=== PATIENT | male | born 1980 | race Caucasian/White ===

== ENCOUNTER 2020-02-12 05:57 | Inpatient (IN) | payer OTHER ==
[2020-02-12 06:36] VITALS: BMI 29.7
[2020-02-12] MEDS ORDERED: LORazepam 2 MG/ML SDV VIAL ONE ×4 (07:32→13:06)
[2020-02-12] MEDS ORDERED: ONDANSETRON 4 MG/2 ML VIAL IVPUSH ONE (07:36)
[2020-02-12 08:24] LABS: BASO % 0.8 % (0-2.0); EOS % 3.5 % (0-4.5); HEMATOCRIT 40.5 % (35.4-49); HEMOGLOBIN 13.2 GM/dL (11.7-16.9); LYMPH % 38.7 % (8-40); MCH 26.5 pg (25.7-33.7); MCHC 32.6 g/dl (32.0-35.9); MEAN CELL VOLUME 81.4 fl (80-96); MEAN PLT VOLUME 7.9 fl (7.5-11.1); MONO % 7.5 % (3.8-10.2); NEUT % 49.5 % (42.8-82.8); PLATELET COUNT 184 K/MM3 (134-434); RBC 4.97 M/mm3 (4.00-5.60); RDW 20.5 % (11.9-15.9); WHITE BLOOD COUNT 7.1 K/mm3 (4.0-10.0)
[2020-02-12] MEDS ORDERED: ONDANSETRON 4 MG/2 ML VIAL ONE (08:31)
[2020-02-12 08:34] LABS: CHLORIDE 104 mmol/L (98-107); POTASSIUM 4.1 mmol/L (3.5-5.1); SODIUM 138 mmol/L (136-145)
[2020-02-12 08:36] LABS: ALBUMIN 3.2 g/dl (3.4-5.0); ANION GAP 4 MMOL/L (8-16); CALCIUM 8.7 mg/dL (8.5-10.1); CO2 31 mmol/L (21-32)
[2020-02-12 08:37] LABS: BLOOD UREA NITROGEN 11.4 mg/dL (7-18); GLUCOSE,RANDOM 85 mg/dL (74-106)
[2020-02-12 08:39] LABS: SGOT/AST 22 U/L (15-37); SGPT/ALT 24 U/L (13-61)
[2020-02-12] MEDS ORDERED: LACTATED RINGERS SOLUTION 1000 ML INFUS.BAG IV ONE (08:39)
[2020-02-12] MEDS ORDERED: levETIRAcetam 500 MG/5 ML INJECTION VIAL IVPB ONE ×2 (08:39→09:27)
[2020-02-12 08:40] LABS: CREATININE 0.9 mg/dL (0.55-1.3)
[2020-02-12 08:41] LABS: BILIRUBIN,TOTAL 0.2 mg/dL (0.2-1); TOT PROT 7.6 g/dl (6.4-8.2)
[2020-02-12 08:42] LABS: ALK PHOS 93 U/L (45-117)
[2020-02-12 09:59] LABS: ANISOCYTOSIS 1+; MACROCYTOSIS 1+; PLATELET ESTIMATE NORMAL
[2020-02-12] MEDS ORDERED: KETAMINE HCL 200 MG/20 ML VIAL IVPUSH ONE (11:15)
[2020-02-12] MEDS ORDERED: KETAMINE HCL 200 MG/20 ML VIAL ONE (11:42)
[2020-02-12] MEDS ORDERED: RAPID SEQUENCE INTUBATION KIT NR ONE (13:04)
[2020-02-12] MEDS ORDERED: FOSPHENYTOIN SODIUM 1,000 MG in SODIUM CHLORIDE 100 ML IVPB ONE (13:11)
[2020-02-12] MEDS ORDERED: FAMOTIDINE 20 MG/50 ML IVPB 20 MG/50 ML MG IVPB ONE ×2 (16:26→18:09)
[2020-02-12] MEDS ORDERED: ALBUTEROL SO4 HFA INHALER IH PRN (16:39)
[2020-02-12] MEDS ORDERED: METHADONE HCL 10 MG TABLET PO ONE ×2 (16:41→18:00)
[2020-02-12] MEDS ORDERED: ONDANSETRON *ODT* 4 MG TABLET SL ONE (16:47)
[2020-02-12] MEDS ORDERED: MAGNESIUM SULF 50% (8.12 MEQ/2 ML-1 GM VIAL) IVPB ONE (17:34)
[2020-02-12] MEDS ORDERED: chlordiazePOXIDE HCL 10 MG CAPSULE PO PRN (17:57)
[2020-02-12] MEDS ORDERED: METHADONE 40 MG, METHADONE 10 MG PO ONE (18:00)
[2020-02-12] MEDS ORDERED: chlordiazePOXIDE HCL 10 MG CAPSULE PO SCH ×2 (18:00→23:00)
[2020-02-12] MEDS ORDERED: METHADONE HCL 10 MG TABLET ONE (18:08)
[2020-02-12] MEDS ORDERED: chlordiazePOXIDE 5 MG CAPSULE ONE (18:08)
[2020-02-12] MEDS ORDERED: ONDANSETRON *ODT* 4 MG TABLET ONE (18:09)
[2020-02-12] MEDS ORDERED: METHADONE HCL 40 MG DISPERSABLE TABLET ONE (18:09)
[2020-02-12] MEDS ORDERED: MAGNESIUM SULF 50% (8.12 MEQ/2 ML-1 GM VIAL) ONE (18:09)
[2020-02-12] MEDS: POLYETHYLENE GLYCOL 3350 119 GM BTL PO SCH (18:11)
[2020-02-12] MEDS ORDERED: PENICILLIN G BENZATHINE 2,400,000 UNIT/4 ML PFS IM ONE (18:22)
[2020-02-12] MEDS: INSULIN SLIDING SCALE (NOVOLOG) 1 VIAL SQ SCH ×2 (18:31→21:05)
[2020-02-12] MEDS: HEPARIN NA (PORCINE) 5,000 UNITS/ML 1ML VIAL SQ SCH (20:59)
[2020-02-12] MEDS ORDERED: FAMOTIDINE 20 MG TABLET PO ONE (21:24)
[2020-02-12] MEDS: QUEtiapine FUMARATE 300 MG TABLET PO SCH (22:20)
[2020-02-12] MEDS: levETIRAcetam 500 MG TABLET (FP) PO SCH (22:20)
[2020-02-12] MEDS: PHENYTOIN 50 MG TAB.CHEW PO SCH (22:20)
[2020-02-12] MEDS ORDERED: chlordiazePOXIDE HCL 25 MG CAPSULE PO SCH ×2 (23:00)
[2020-02-13 00:22] LABS: PROTHROMBIN TIME (PATIENT) 12.3 SEC (9.7-13.0)
[2020-02-13 00:24] LABS: ACTIVATED PTT 30.9 SECONDS (25.2-36.5)
[2020-02-13 01:14] LABS: EPI CELLS 1 /uL (0-25.1); HYALINE CASTS 1 /uL (0-3.1); PH,URINE 7.5 (5.0-8.0); URINE APPEARANCE CLOUDY; URINE BACTERIA 2954 /uL (0-1359); URINE BILIRUBIN NEGATIVE (NEGATIVE); URINE COLOR YELLOW; URINE GLUCOSE (UA) NEGATIVE (NEGATIVE); URINE KETONE NEGATIVE (NEGATIVE); URINE LEUK ESTERASE 3+ (NEGATIVE); URINE NITRITE NEGATIVE (NEGATIVE); URINE PROTEIN 1+ (NEGATIVE); URINE RBC 43 /uL (0-23.9); URINE WBC 2678 /uL (0-25.8)
[2020-02-13 01:21] LABS: LDH 216 U/L (87-246)
[2020-02-13] MEDS ORDERED: chlordiazePOXIDE HCL 10 MG CAPSULE PO ONE (05:00)
[2020-02-13] MEDS: HEPARIN NA (PORCINE) 5,000 UNITS/ML 1ML VIAL SQ SCH ×4 (05:50→21:19)
[2020-02-13] MEDS: PHENYTOIN 50 MG TAB.CHEW PO SCH ×4 (05:51→22:15)
[2020-02-13] MEDS: chlordiazePOXIDE HCL 10 MG CAPSULE PO SCH ×4 (05:52→22:15)
[2020-02-13] MEDS: INSULIN SLIDING SCALE (NOVOLOG) 1 VIAL SQ SCH ×4 (06:01→21:16)
[2020-02-13 07:15] LABS: BASO % 0.7 % (0-2.0); EOS % 3.6 % (0-4.5); HEMATOCRIT 37.9 % (35.4-49); HEMOGLOBIN 12.1 GM/dL (11.7-16.9); MCH 26.1 pg (25.7-33.7); MEAN CELL VOLUME 81.7 fl (80-96); MEAN PLT VOLUME 7.9 fl (7.5-11.1); MONO % 7.6 % (3.8-10.2); NEUT % 42.1 % (42.8-82.8); PLATELET COUNT 169 K/MM3 (134-434); RBC 4.65 M/mm3 (4.00-5.60); RDW 20.8 % (11.9-15.9); WHITE BLOOD COUNT 6.1 K/mm3 (4.0-10.0)
[2020-02-13 07:33] LABS: POTASSIUM 4.5 mmol/L (3.5-5.1)
[2020-02-13 07:44] LABS: BLOOD UREA NITROGEN 10.8 mg/dL (7-18); CALCIUM 8.1 mg/dL (8.5-10.1); MAGNESIUM 2.6 mg/dL (1.8-2.4)
[2020-02-13 07:47] LABS: CREATININE 0.9 mg/dL (0.55-1.3)
[2020-02-13 07:48] LABS: BILIRUBIN,TOTAL 0.5 mg/dL (0.2-1); PHOSPHOROUS 3.6 mg/dL (2.5-4.9)
[2020-02-13] MEDS ORDERED: SODIUM CHLORIDE 1,000 ML IV SCH (09:15)
[2020-02-13] MEDS ORDERED: PT OWN MED DRAWER 7, Y5N ONE ×4 (09:35→21:09)
[2020-02-13] MEDS: SODIUM CHLORIDE 1,000 ML IV SCH (09:48)
[2020-02-13] MEDS: hydrOXYzine PAMOATE 50 MG CAPSULE (FP) PO PRN (09:53)
[2020-02-13] MEDS: levETIRAcetam 500 MG TABLET (FP) PO SCH ×2 (09:53→21:15)
[2020-02-13] MEDS ORDERED: FLU VACCINE (FLULAVAL) PF 60 MCG/0.5 ML SYRINGE 2020-2021 IM ONE (10:00)
[2020-02-13] MEDS ORDERED: SERTRALINE HCL 50 MG TABLET (FP) PO SCH (10:00)
[2020-02-13] MEDS ORDERED: METHADONE HCL 40 MG DISPERSABLE TABLET PO SCH (10:00)
[2020-02-13] MEDS ORDERED: MAGNESIUM HYDROX 2400MG/30ML ORAL SUSPENSION 30 ML CUP PO PRN (11:46)
[2020-02-13] MEDS: POLYETHYLENE GLYCOL 3350 119 GM BTL PO SCH ×2 (11:53→18:47)
[2020-02-13] MEDS: NICOTINE 7 MG/24 HOURS TOPICAL PATCH TD SCH (11:53)
[2020-02-13] MEDS: QUEtiapine FUMARATE 200 MG TABLET PO SCH (11:59)
[2020-02-13] MEDS ORDERED: ACETAMINOPHEN 325 MG TABLET (FP) PO PRN (13:29)
[2020-02-13] MEDS ORDERED: METHADONE HCL 5 MG TABLET (FOR DETOX USE ONLY) PO SCH (14:30)
[2020-02-13] MEDS ORDERED: METHADONE HCL 40 MG DISPERSABLE TABLET ONE (16:16)
[2020-02-13] MEDS ORDERED: METHADONE HCL 10 MG TABLET ONE (16:17)
[2020-02-13] MEDS: METHADONE 160 MG, METHADONE 10 MG PO SCH (16:19)
[2020-02-13] MEDS: DOCUSATE SODIUM 100 MG CAPSULE (FP) PO SCH ×2 (16:31→21:15)
[2020-02-13] MEDS: QUEtiapine FUMARATE 300 MG TABLET PO SCH (21:15)
[2020-02-13] MEDS: SENNOSIDES 8.6MG TABLET (FP) PO SCH (21:15)
[2020-02-14] MEDS: chlordiazePOXIDE HCL 10 MG CAPSULE PO SCH ×2 (05:56→17:35)
[2020-02-14] MEDS: HEPARIN NA (PORCINE) 5,000 UNITS/ML 1ML VIAL SQ SCH ×3 (06:00→21:47)
[2020-02-14] MEDS: INSULIN SLIDING SCALE (NOVOLOG) 1 VIAL SQ SCH ×4 (06:01→21:48)
[2020-02-14] MEDS ORDERED: PT OWN MED DRAWER 7, Y5N ONE ×6 (06:03→21:42)
[2020-02-14] MEDS ORDERED: METHADONE HCL 10 MG TABLET ONE (06:25)
[2020-02-14] MEDS ORDERED: METHADONE HCL 40 MG DISPERSABLE TABLET ONE (06:25)
[2020-02-14] MEDS: METHADONE 160 MG, METHADONE 10 MG PO SCH (06:28)
[2020-02-14] MEDS: PHENYTOIN 50 MG TAB.CHEW PO SCH ×3 (06:38→21:47)
[2020-02-14 07:13] LABS: BASO % 0.6 % (0-2.0); EOS % 3.6 % (0-4.5); HEMATOCRIT 39.7 % (35.4-49); HEMOGLOBIN 12.8 GM/dL (11.7-16.9); LYMPH % 35.2 % (8-40); MCH 26.4 pg (25.7-33.7); MCHC 32.3 g/dl (32.0-35.9); MEAN CELL VOLUME 81.8 fl (80-96); MEAN PLT VOLUME 7.7 fl (7.5-11.1); MONO % 8.6 % (3.8-10.2); PLATELET COUNT 179 K/MM3 (134-434); RBC 4.85 M/mm3 (4.00-5.60); RDW 19.6 % (11.9-15.9); WHITE BLOOD COUNT 7.3 K/mm3 (4.0-10.0)
[2020-02-14 07:23] LABS: POTASSIUM 4.1 mmol/L (3.5-5.1)
[2020-02-14 07:28] LABS: CALCIUM 8.4 mg/dL (8.5-10.1)
[2020-02-14 07:29] LABS: ALBUMIN 3.1 g/dl (3.4-5.0); BLOOD UREA NITROGEN 11.7 mg/dL (7-18)
[2020-02-14 07:32] LABS: CREATININE 0.9 mg/dL (0.55-1.3)
[2020-02-14 07:33] LABS: BILIRUBIN,TOTAL 0.4 mg/dL (0.2-1)
[2020-02-14 07:34] LABS: TOT PROT 7.5 g/dl (6.4-8.2)
[2020-02-14] MEDS ORDERED: FLU VACCINE (FLULAVAL) PF 60 MCG/0.5 ML SYRINGE 2020-2021 IM ONE (08:00)
[2020-02-14] MEDS: SODIUM CHLORIDE 1,000 ML IV SCH (10:51)
[2020-02-14] MEDS: NICOTINE 7 MG/24 HOURS TOPICAL PATCH TD SCH (10:52)
[2020-02-14] MEDS: DOCUSATE SODIUM 100 MG CAPSULE (FP) PO SCH ×2 (10:52→21:47)
[2020-02-14] MEDS: FOLIC ACID 1 MG TABLET (FP) PO SCH (10:52)
[2020-02-14] MEDS: THIAMINE HCL 100 MG TABLET (FP) PO SCH (10:52)
[2020-02-14] MEDS: levETIRAcetam 500 MG TABLET (FP) PO SCH ×2 (10:52→21:47)
[2020-02-14] MEDS: MULTIVITAMINS (DAILY MVI) TABLET (FP) PO SCH (10:52)
[2020-02-14] MEDS: POLYETHYLENE GLYCOL 3350 119 GM BTL PO SCH (10:53)
[2020-02-14] MEDS: QUEtiapine FUMARATE 200 MG TABLET PO SCH (10:59)
[2020-02-14] MEDS: hydrOXYzine PAMOATE 50 MG CAPSULE (FP) PO PRN ×2 (11:08→20:40)
[2020-02-14] MEDS ORDERED: cefTRIAXone SODIUM 1 GM VIAL ONE (14:22)
[2020-02-14] MEDS ORDERED: DEXTROSE 5%-WATER - 50 ML IVPB ONE (14:22)
[2020-02-14] MEDS: FAMOTIDINE 20 MG TABLET PO SCH ×2 (15:39→21:47)
[2020-02-14] MEDS: CEFTRIAXONE 1 GM in DEXTROSE 5%-WATER - 50 ML IVPB SCH (15:53)
[2020-02-14] MEDS: QUEtiapine FUMARATE 300 MG TABLET PO SCH (21:47)
[2020-02-14] MEDS: SENNOSIDES 8.6MG TABLET (FP) PO SCH (21:47)
[2020-02-15] MEDS ORDERED: chlordiazePOXIDE HCL 10 MG CAPSULE PO ONE (05:00)
[2020-02-15] MEDS ORDERED: METHADONE HCL 40 MG DISPERSABLE TABLET ONE (06:09)
[2020-02-15] MEDS ORDERED: METHADONE HCL 10 MG TABLET ONE (06:10)
[2020-02-15] MEDS: HEPARIN NA (PORCINE) 5,000 UNITS/ML 1ML VIAL SQ SCH ×2 (06:14→13:54)
[2020-02-15] MEDS: METHADONE 160 MG, METHADONE 10 MG PO SCH (06:14)
[2020-02-15] MEDS: INSULIN SLIDING SCALE (NOVOLOG) 1 VIAL SQ SCH ×3 (06:15→16:44)
[2020-02-15] MEDS: SODIUM CHLORIDE 1,000 ML IV SCH ×2 (06:16→09:53)
[2020-02-15] MEDS: PHENYTOIN 50 MG TAB.CHEW PO SCH ×2 (06:48→13:04)
[2020-02-15] MEDS ORDERED: DEXTROSE 5%-WATER - 50 ML IVPB ONE (09:48)
[2020-02-15] MEDS ORDERED: PT OWN MED DRAWER 7, Y5N ONE (09:48)
[2020-02-15] MEDS ORDERED: cefTRIAXone SODIUM 1 GM VIAL ONE (09:48)
[2020-02-15] MEDS: CEFTRIAXONE 1 GM in DEXTROSE 5%-WATER - 50 ML IVPB SCH (09:51)
[2020-02-15] MEDS: QUEtiapine FUMARATE 200 MG TABLET PO SCH (09:52)
[2020-02-15] MEDS: FOLIC ACID 1 MG TABLET (FP) PO SCH (09:52)
[2020-02-15] MEDS: MULTIVITAMINS (DAILY MVI) TABLET (FP) PO SCH (09:52)
[2020-02-15] MEDS: THIAMINE HCL 100 MG TABLET (FP) PO SCH (09:52)
[2020-02-15] MEDS: DOCUSATE SODIUM 100 MG CAPSULE (FP) PO SCH (09:52)
[2020-02-15] MEDS: NICOTINE 7 MG/24 HOURS TOPICAL PATCH TD SCH (09:53)
[2020-02-15] MEDS: FAMOTIDINE 20 MG TABLET PO SCH (09:54)
[2020-02-15] MEDS: levETIRAcetam 500 MG TABLET (FP) PO SCH (09:54)
[2020-02-15] MEDS: POLYETHYLENE GLYCOL 3350 119 GM BTL PO SCH (09:57)
[2020-02-15 14:20] VITALS: BP 102/61; PULSE 78; TEMP 97.8
[2020-02-15] MEDS ORDERED: AMOX TR/POT CLAV 875MG/125MG TABLETS (FP) PO SCH (17:30)
== END 2020-02-15 18:00 | disposition left against medical advice (07) | DRG 770 ==
LOC: JER 05:57 → JERBED 16:54 → J4S 19:31
DX: F10.288 Alcohol dependence with other alcohol-induced disorder (principal); F10.230 Alcohol dependence with withdrawal, uncomplicated; F20.9 Schizophrenia, unspecified; F11.20 Opioid dependence, uncomplicated; M62.82 Rhabdomyolysis; F41.9 Anxiety disorder, unspecified; F31.9 Bipolar disorder, unspecified; R73.03 Prediabetes; B19.20 Unspecified viral hepatitis C without hepatic coma; J45.909 Unspecified asthma, uncomplicated; H33.22 Serous retinal detachment, left eye; Z91.14 Patient's other noncompliance with medication regimen; K59.03 Drug induced constipation; T40.2X5A Adverse effect of other opioids, initial encounter; K62.5 Hemorrhage of anus and rectum; M79.604 Pain in right leg; N39.0 Urinary tract infection, site not specified; R51.9 Headache, unspecified; F64.0 Transsexualism; G47.00 Insomnia, unspecified; G40.509 Epileptic seizures related to external causes, not intractable, without status epilepticus
CPT/HCPCS: 36415; 70450-TC; 71045-TC-FY; 73030-TC-LT-FY; 73502-TC-RT-FY; 73560-TC-RT-FY; 76700-TC; 80053; 80177; 81003; 82272; 82550; 82553; 82728; 82962; 83036; 83615; 83735; 84100; 84443; 84484; 85025; 85379; 85610; 85730; 86140; 86593; 86780; 87086; 87186; 93005; 93010; 93970-TC; 97116-GP; 97162-GP; 99291; G0008; J1644; Q0162; Q2036